=== PATIENT | male | born 1950 | race Caucasian/White ===

== ENCOUNTER 2016-09-04 23:00 | Emergency (ER) | payer MEDICARE, MEDICAID ==
[2016-09-04 23:10] VITALS: RESP 24; TEMP 100.6
[2016-09-04] MEDS ORDERED: ACETAMINOPHEN 500 MG 500 MG TAB PO ONE (23:18)
[2016-09-04] MEDS ORDERED: ACETAMINOPHEN 500 MG 500 MG TAB ONE (23:19)
[2016-09-04 23:46] VITALS: O2SAT 98
[2016-09-04 23:47] VITALS: BP 145/61; PULSE 87
== END 2016-09-04 23:42 | disposition home or self-care (01) | DRG 153 ==
LOC: ED 23:00
DX: J06.9 Acute upper respiratory infection, unspecified (principal)
CPT/HCPCS: 99282